=== PATIENT | female | born 1965 | race Two or more races ===

== ENCOUNTER 2025-07-23 07:00 | Day surgery (SDC) | payer OTHER ==
[2025-07-17 11:17] LABS: BASO % 0.7 % (0.1-1.2); EOS # 0.04 (0.04-0.54); EOS % 0.7 % (0.7-7.0); LYMPH # 1.75 (1.18-3.74); LYMPH % 31.9 % (19.3-53.1); MEAN PLATELET VOLUME 9.90 fl (9.4-12.4); MONO # 0.42 (0.24-0.82); MONO % 7.7 % (4.7-12.5); NEUT # 3.22 (1.56-6.13); NEUT % 58.8 % (34.0-71.1); RED CELL DISTRIBUTION WIDTH 13.9 % (11.6-14.4)
[2025-07-17 11:40] LABS: INR 1.0
[2025-07-17 12:17] LABS: ALT/SGPT 32.0 U/L (12-78); AST/SGOT 31.0 U/L (15-37); BILIRUBIN TOTAL 0.27 mg/dL (0.3-1.2); BUN CREA RATIO 21.0 (7.0-25.0); CREATININE SERUM 0.7 mg/dL (0.55-1.02); GFR 85.65; GLOBULINA 3.5 G/DL (2.4-3.5); GLUCOSE FASTING 90.0 mg/dL (65-100); OSMOLALITY SERUM 287.0 MOSM/KG (275-295)
[2025-07-17 12:26] VITALS: BP 160/90
[~2025-07-23] VITALS: Ht 162.6 cm; Wt 58.1 kg
[~2025-07-23 07:00] MED LIST: COZAAR100 MG PO; IRON325 MG PO; PROTONIX40 MG PO
[2025-07-23] MEDS ORDERED: GLUCAGON 1 MG VIAL ONE (10:12)
== END 2025-07-23 11:40 | disposition home or self-care (01) ==
LOC: CIR.AMB 07:00
PROVIDERS: ATTEND Internal Medicine
DX: K29.50 Unspecified chronic gastritis without bleeding (principal); D50.9 Iron deficiency anemia, unspecified; K44.9 Diaphragmatic hernia without obstruction or gangrene